=== PATIENT | male | born 1975 | race African-American/Black ===

== ENCOUNTER 2019-04-16 16:29 | Inpatient (IN) ==
[2019-04-16 16:52] LABS: BLOOD TYPE ARTERIAL; SAMPLE BLOOD
[2019-04-16 16:53] LABS: ALLEN TEST YES; BE 2.3 mmoll (-3.0-3.0); HCO3-(ACT) 26.6 mmoll (20.0-26.0); METHB 0.6 % (0.0-1.5); O2(CT) 17.1 mL/dL (15.0-23.0); O2HB 91.9 % (95.0-99.0); PCO2(98.6) 43 mmHg (35-45); PO2(98.6) 62 mmHg (60-100); SAO2 93.4 % (95.0-100.0); THB 13.2 g/dL (11.5-17.4); pH(98.6) 7.41 (7.35-7.45)
[2019-04-16 17:00] LABS: MODALITY ROOM AIR
--- NOTE | 2019-04-16 17:06 | Diag Imaging Result Doc PS360 ---
EXAM: CHEST-PORTABLE HISTORY: chf, pna TECHNIQUE: Portable chest single view COMPARISON: 02/18/2015 FINDINGS: The lungs are well expanded. The heart is not enlarged. The vessels are not distended. There are no infiltrates. No effusion identified. IMPRESSION: No pneumonia or congestive failure. Electronically signed by Jameel Gavin 04/16/2019 5:04 PM
[2019-04-16 17:34] LABS: BASO# 0.06 X1000 (0.0-0.2); BASO% 0.9 % (0.0-0.8); EOS# 0.26 X1000 (0.0-0.7); EOS% 3.7 % (0.0-10.0); HEMATOCRIT 37.5 % (42.0-52.0); LYMPH# 1.87 X1000 (1.2-3.4); LYMPH% 26.8 % (20.5-51.1); MCH 27.2 PG (27-31); MCHC 34.7 g/dL (33-37); MCV 78.5 FL (81-99); MONO# 0.99 X1000 (0.11-0.59); MONO% 14.2 % (1.7-9.3); NEUT% 54.4 % (42.2-75.2); PLT 255 X1000 (130-400); RBC 4.78 XMIL (4.7-6.1); RDW 12.9 % (11.5-14.5); WBC 6.98 X1000 (4.8-10.8)
[2019-04-16 17:39] LABS: INR 0.83; PROTIME 12.1 Seconds (11.0-16.0); PTT 23.8 Seconds (22.3-41.8)
[2019-04-16] MEDS ORDERED: ATIVAN IV ONE (17:46)
[2019-04-16 18:06] LABS: ALBUMIN 3.6 g/dL (3.5-5.0); CALCIUM 9.2 mg/dL (8.8-10.2); CREATININE 1.8 mg/dL (0.7-1.2); MAGNESIUM 2.2 mg/dL (1.5-2.7); POTASSIUM 4.4 mmol/L (3.5-5.1); TOTAL BILIRUBIN 0.24 mg/dL (0.20-1.00); TOTAL PROTEIN 7.1 g/dL (6.3-8.3)
[2019-04-16] MEDS ORDERED: HUMULIN R IV ONE ×2 (18:08→18:10)
[2019-04-16] MEDS ORDERED: NS 1,000 ML IV ONE (18:09)
[2019-04-16 19:18] LABS: UR AMPHETAMINES QUAL NONE DETECTED (NONE DETECT); UR BARBITUATES QUAL NONE DETECTED (NONE DETECT); UR BENZODIAZEPIN QUAL NONE DETECTED (NONE DETECT); UR CANNABINOIDS QUAL NONE DETECTED (NONE DETECT); UR COCAINE QUAL NONE DETECTED (NONE DETECT); UR METHADONE QUAL NONE DETECTED (NONE DETECT); UR OPIATES QUAL NONE DETECTED (NONE DETECT); UR OXYCODONE QUAL NONE DETECTED (NONE DETECT); UR PCP QUAL NONE DETECTED (NONE DETECT)
--- NOTE | 2019-04-16 19:23 | Diag Imaging Result Doc PS360 ---
EXAM: CT HEAD W/O CONTRAST HISTORY: seizure TECHNIQUE: Emergency CT of the head without contrast COMPARISON: None. FINDINGS: No parenchymal hemorrhage. No epidural or subdural hematoma. No subarachnoid hemorrhage. There are chronic microvascular ischemic changes. No mass identified on this noncontrasted exam. No hydrocephalus. Bilateral maxillary mucosal thickening. False right eye. Hyperdense material within the left eye. IMPRESSION: 1.No hemorrhage. 2.Chronic microvascular ischemic changes This exam was performed using automated exposure control, adjustment of mA or kV according to patient size, and/or use of iterative reconstruction technique. Electronically signed by Jameel Gavin 04/16/2019 7:20 PM
[2019-04-16] MEDS ORDERED: KEPPRA 500 MG in NS 100 ML IV ONE (20:38)
--- NOTE | 2019-04-16 20:39 | PROVIDER DOCUMENTATION ---
This chart was entered by Linda Bustillo Scribe, acting as scribe for Ruth Diego MD. HPI-Neurological Disorder - General Stated Complaint: SEIZURES Time Seen by Provider: 04/16/19 16:37 Source: patient Allergies/Adverse Reactions: Patient Allergies Allergy/AdvReac Type Severity Reaction Status Date / Time acetaminophen [From Lortab] Allergy NAUSEA Verified 10/06/15 14:12 hydrocodone bitartrate * Allergy NAUSEA Verified 10/06/15 14:12 [From Lortab] Home Medications: Home Medication List Medication Instructions Recorded Confirmed Last Taken Type Brimonidine/Timolol Ophth Soln 1 drop BOTH EYES BID 02/18/15 10/06/15 02/18/15 06:00 History [Combigan Ophth Soln] Brinzolamide 1% Ophth Susp [Azopt 1 drop BOTH EYES BID 02/18/15 10/06/15 02/18/15 06:00 History 1% Ophth Susp] Nifedipine E.r. [Procardia ER] 60 mg PO DAILY 02/18/15 10/06/15 02/17/15 08:30 History Amlodipine Besylate [Norvasc] 10 mg DAILY 09/30/15 10/06/15 Unknown History Insulin Detemir [Levemir Flextouch] 30 units DAILY 09/30/15 10/06/15 Unknown History Insulin Regular, Human [Novolin R] 20 units SQ DIRECTED PRN PRN 09/30/15 10/06/15 Unknown History Labetalol [Trandate] 200 mg BID 09/30/15 10/06/15 Unknown History Lisinopril 40 mg PO DAILY 09/30/15 10/06/15 Unknown History Omeprazole [Prilosec] 40 mg DAILY 09/30/15 10/06/15 Unknown History Hydralazine [Apresoline] 25 mg PO BID 10/06/15 10/06/15 Unknown History - History of Present Illness-Neuro Nature of Presenting Problem: 43 y/o male presents to ED with 2 seizures onset just prior to arrival. Pt has no hx seizures. Both grand mal seizures lasted less than 5 min and were witnessed by family. Pt is post ictal and unable to speak at this time. EMS rep orts he was hypertensive and FSBS in 400s upon their arrival. Pt is alert and communicating by nodding his head. Severity: reports: moderate Onset/Duration: reports: just prior to arrival Timing: reports: gone now Context: reports: seizure activity Character of Altered Mental Status: reports: N/A Any recent trauma/injury?: reports: none New weakness or altered sensation location:: reports: none Cognitive Baseline: alert, oriented x3 Gait Baseline: walks without assistance Associated Symptoms: reports: seizures Similar Symptoms Previously?: No Recently seen or treated by another doctor?: No - Seizure First time to have a seizure?: Yes Witnessed seizure?: Yes How many seizure episodes?: 2 Duration of episode? (mins): 1 (less than 1 minute) Episode Frequency: no prior episodes Status Epilepticus: No Preceding symptoms/context:: none Character of Seizure: reports: lost consciousness, generalized shaking all over Post-ictal Symptoms: reports: speech difficulty Seizure related injury: none Review of Systems - Adult - REVIEW OF SYSTEMS - ADULT Constitutional: denies: chills, fever Eyes: reports: no symptoms reported Ears, Nose, Mouth & Throat: reports: no symptoms reported Cardiovascular: denies: chest pain, palpitations Respiratory: denies: cough, shortness of breath Gastrointestinal: denies: abdominal pain, diarrhea, nausea, vomiting Genitourinary: reports: no symptoms reported Musculoskeletal: denies: back pain, joint pain Integumentary: reports: no symptoms reported Neurological: reports: seizure. denies: dizziness/vertigo Psychiatric: reports: no symptoms reported Endocrine: reports: no symptoms reported Hematologic/Lymphatic: reports: no symptoms reported Allergic/Immunologic: reports: no symptoms reported All Other Systems: Reviewed and Negative Past History - Adult - PAST MEDICAL HISTORY-ADULT Review of Records: reports: Old Records Reviewed, Nursing Assessment Review, Medications Reviewed Major Childhood Illnesses: reports: denies history Cardiovascular: reports: CHF, HTN Respiratory: reports: COPD Gastrointestinal: reports: ulcer Musculoskeletal: reports: arthritis Endocrine/Immune: reports: anemia, Diabetes Diabetes Type: Type 2 Other Conditions: reports: blindness - PRIOR SURGERIES/PROCEDURES Surgical/Procedure History: reports: other (eye Sx) - IMMUNIZATION STATUS Childhood Immunizations: NUTD Flu Vaccine: NUTD - FAMILY HISTORY Family History: reviewed, not pertinent - SOCIAL HISTORY Smoking: non-smoker Substance Use: marijuana Alcohol Use Frequency: never Living Situation: family Physical Exam- Neurological - Physical Exam-Neuro Initial Vital Signs Reviewed: Yes General Appearance: appears well, alert, no apparent distress, other (communicating via nodding his head; unable to speak) Eye Exam: bilateral eye: other (blind) HENMT: normocephalic/atraumatic, moist mucous membranes, normal ENT inspection Head Injury: no evidence of injury Neck: non-tender, full range of motion Respiratory: chest non-tender, lungs clear, normal breath sounds Cardiovascular: normal peripheral pulses, regular rate, rhythm Abdominal Exam: normal bowel sounds, non tender, soft Extremity: normal range of motion, non-tender, normal gait, swelling (2+ pitting edema of bilateral lower extremities) roller structural mill Exam: normal hearing, normal speech, PERRL Coordination/Gait: normal finger to nose, normal gait Motor/Sensory: no motor deficit, no sensory deficit, no pronator drift Neurologic: roller structural mill II-XII nml as tested, grossly normal, no motor/sensory deficits Integumentary: normal color, warm/dry Psych/Mental Status: normal mood/affect, normal thought content, normal thought process Progress - PLAN OF CARE/RESULTS Progress/Plan/Lab Results: Vital Signs - 8 hr 04/16/19 16:42 04/16/19 16:53 04/16/19 16:54 Temperature 98.2 F Pulse Rate 94 H Respiratory Rate 16 Blood Pressure 177/108 177/108 O2 Sat by Pulse Oximetry 96 97 96 04/16/19 17:00 04/16/19 17:02 04/16/19 17:10 Temperature Pulse Rate 92 H 95 H 95 H Respiratory Rate 13 15 Blood Pressure 181/109 O2 Sat by Pulse Oximetry 96 96 95 04/16/19 17:20 04/16/19 17:30 04/16/19 17:33 Temperature Pulse Rate 96 H 93 H 93 H Respiratory Rate 6 L 5 L 11 L Blood Pressure 193/105 O2 Sat by Pulse Oximetry 97 96 95 04/16/19 17:40 04/16/19 17:50 04/16/19 18:00 Temperature Pulse Rate 93 H 102 H 97 H Respiratory Rate 3 L 20 17 Blood Pressure O2 Sat by Pulse Oximetry 96 98 99 04/16/19 18:03 04/16/19 18:10 04/16/19 18:20 Temperature Pulse Rate 97 H 98 H 100 H Respiratory Rate 16 21 19 Blood Pressure 167/106 O2 Sat by Pulse Oximetry 99 100 99 04/16/19 18:30 04/16/19 18:33 04/16/19 19:09 Temperature Pulse Rate 96 H 96 H 94 H Respiratory Rate 14 12 12 Blood Pressure 170/106 O2 Sat by Pulse Oximetry 99 99 97 04/16/19 19:10 Temperature Pulse Rate 92 H Respiratory Rate 13 Blood Pressure O2 Sat by Pulse Oximetry 99 Laboratory Results - last 24 hr 04/16/19 04/16/19 04/16/19 16:35 16:50 17:12 WBC RBC Hgb Hct MCV MCH MCHC RDW Std Deviation Plt Count MPV Immature Gran % (Auto) Neut % (Auto) Lymph % (Auto) [place] % (Auto) Eos % (Auto) Baso % (Auto) Immature Gran # (Auto) Neut # (Auto) Lymph # (Auto) [place] # (Auto) Eos # (Auto) Baso # (Auto) PT INR PTT (Actin FS) Specimen Type ARTERIAL Sample Site R RADIAL pH 7.41 pCO2 43 pO2 62 HCO3 26.6 H Base Excess 2.3 Oxyhemoglobin 91.9 L ABG O2 Sat (Calculated) 17.1 ABG O2 Saturation 93.4 L ABG Carboxyhemoglobin 1.00 ABG Methemoglobin 0.6 Yogesh Test YES A-a O2 Difference 34.0 Total Hemoglobin 13.2 Lactate 1.60 Blood Gas Modality ROOM AIR FiO2 % 21.0 Sodium Potassium Chloride Carbon Dioxide Anion Gap BUN Creatinine Estimated GFR/1.73 m2 BUN/Creatinine Ratio Glucose POC Glucose 500 H D Calculated Osmolality Calcium Phosphorus Magnesium Total Bilirubin AST ALT Alkaline Phosphatase Creatine Kinase Troponin T Total Protein Albumin Globulin Albumin/Globulin Ratio Plasma Lactate Urine Opiates Screen Ur Oxycodone Screen Ur Methadone, Qual Ur Barbiturates Screen Ur Phencyclidine Scrn Ur Amphetamines Screen U Benzodiazepines Scrn Urine Cocaine Screen U Cannabinoids Screen Plasma/Serum Ethyl Alc 04/16/19 04/16/19 04/16/19 17:12 17:12 17:12 WBC 6.98 RBC 4.78 Hgb 13.0 L Hct 37.5 L MCV 78.5 L MCH 27.2 MCHC 34.7 RDW Std Deviation 12.9 Plt Count 255 MPV 11.0 H Immature Gran % (Auto) 0.0 Neut % (Auto) 54.4 Lymph % (Auto) 26.8 [place] % (Auto) 14.2 H Eos % (Auto) 3.7 Baso % (Auto) 0.9 H Immature Gran # (Auto) 0.00 Neut # (Auto) 3.80 Lymph # (Auto) 1.87 [place] # (Auto) 0.99 H Eos # (Auto) 0.26 Baso # (Auto) 0.06 PT INR PTT (Actin FS) Specimen Type Sample Site pH pCO2 pO2 HCO3 Base Excess Oxyhemoglobin ABG O2 Sat (Calculated) ABG O2 Saturation ABG Carboxyhemoglobin ABG Methemoglobin Yogesh Test A-a O2 Difference Total Hemoglobin Lactate Blood Gas Modality FiO2 % Sodium 130 L Potassium 4.4 Chloride 90 L Carbon Dioxide 25 Anion Gap 15 BUN 28 H Creatinine 1.8 H Estimated GFR/1.73 m2 50 BUN/Creatinine Ratio 16 Glucose 568 H* POC Glucose Calculated Osmolality 292 Calcium 9.2 Phosphorus Magnesium 2.2 Total Bilirubin 0.24 AST 7 L ALT 6 L Alkaline Phosphatase 63 Creatine Kinase 73 Troponin T Total Protein 7.1 Albumin 3.6 Globulin 3.5 Albumin/Globulin Ratio 1.0 Plasma Lactate 1.3 Urine Opiates Screen Ur Oxycodone Screen Ur Methadone, Qual Ur Barbiturates Screen Ur Phencyclidine Scrn Ur Amphetamines Screen U Benzodiazepines Scrn Urine Cocaine Screen U Cannabinoids Screen Plasma/Serum Ethyl Alc 04/16/19 04/16/19 04/16/19 17:12 17:12 17:12 WBC RBC Hgb Hct MCV MCH MCHC RDW Std Deviation Plt Count MPV Immature Gran % (Auto) Neut % (Auto) Lymph % (Auto) [place] % (Auto) Eos % (Auto) Baso % (Auto) Immature Gran # (Auto) Neut # (Auto) Lymph # (Auto) [place] # (Auto) Eos # (Auto) Baso # (Auto) PT 12.1 INR 0.83 PTT (Actin FS) 23.8 Specimen Type Sample Site pH pCO2 pO2 HCO3 Base Excess Oxyhemoglobin ABG O2 Sat (Calculated) ABG O2 Saturation ABG Carboxyhemoglobin ABG Methemoglobin Yogesh Test A-a O2 Difference Total Hemoglobin Lactate Blood Gas Modality FiO2 % Sodium Potassium Chloride Carbon Dioxide Anion Gap BUN Creatinine Estimated GFR/1.73 m2 BUN/Creatinine Ratio Glucose POC Glucose Calculated Osmolality Calcium Phosphorus 4.0 Magnesium Total Bilirubin AST ALT Alkaline Phosphatase Creatine Kinase Troponin T 0.027 Total Protein Albumin Globulin Albumin/Globulin Ratio Plasma Lactate Urine Opiates Screen Ur Oxycodone Screen Ur Methadone, Qual Ur Barbiturates Screen Ur Phencyclidine Scrn Ur Amphetamines Screen U Benzodiazepines Scrn Urine Cocaine Screen U Cannabinoids Screen Plasma/Serum Ethyl Alc 04/16/19 18:45 WBC RBC Hgb Hct MCV MCH MCHC RDW Std Deviation Plt Count MPV Immature Gran % (Auto) Neut % (Auto) Lymph % (Auto) [place] % (Auto) Eos % (Auto) Baso % (Auto) Immature Gran # (Auto) Neut # (Auto) Lymph # (Auto) [place] # (Auto) Eos # (Auto) Baso # (Auto) PT INR PTT (Actin FS) Specimen Type Sample Site pH pCO2 pO2 HCO3 Base Excess Oxyhemoglobin ABG O2 Sat (Calculated) ABG O2 Saturation ABG Carboxyhemoglobin ABG Methemoglobin Yogesh Test A-a O2 Difference Total Hemoglobin Lactate Blood Gas Modality FiO2 % Sodium Potassium Chloride Carbon Dioxide Anion Gap BUN Creatinine Estimated GFR/1.73 m2 BUN/Creatinine Ratio Glucose POC Glucose Calculated Osmolality Calcium Phosphorus Magnesium Total Bilirubin AST ALT Alkaline Phosphatase Creatine Kinase Troponin T Total Protein Albumin Globulin Albumin/Globulin Ratio Plasma Lactate Urine Opiates Screen NONE DETECTED Ur Oxycodone Screen NONE DETECTED Ur Methadone, Qual NONE DETECTED Ur Barbiturates Screen NONE DETECTED Ur Phencyclidine Scrn NONE DETECTED Ur Amphetamines Screen NONE DETECTED U Benzodiazepines Scrn NONE DETECTED Urine Cocaine Screen NONE DETECTED U Cannabinoids Screen NONE DETECTED Plasma/Serum Ethyl Alc Orders Category Date Time Status Cardiac Monitoring DIRECTED Care 04/16/19 16:35 Active Finger Stick Blood Sugar (ED) DIRECTED Care 04/16/19 16:34 Active Notify MD if DIRECTED Care 04/16/19 16:34 Active Oxygen Therapy- ED Nursing DIRECTED Care 04/16/19 16:35 Active Saline Loc NOW Care 04/16/19 16:34 Active CHEST-PORTABLE [RAD] Stat Exams 04/16/19 16:[address] HEAD W/O CONTRAST [CT] Stat Exams 04/16/19 16:34 Completed ABG [RESP] Routine Lab 04/16/19 16:35 Completed ALCOHOL BLOOD Stat Lab 04/16/19 17:12 Completed CBC WITH ELECTRONIC DIFF [HEME] Stat Lab 04/16/19 17:12 Completed CK PROFILE [SP CHEM] Stat Lab 04/16/19 17:12 Completed COMPREHENSIVE METABOLIC PANEL [CHEM] Stat Lab 04/16/19 17:12 Completed LACTATE, PLASMA [CHEM] Stat Lab 04/16/19 17:12 Completed MAGNESIUM [CHEM] Stat Lab 04/16/19 17:12 Completed PHOSPHORUS [CHEM] Stat Lab 04/16/19 17:12 Completed PROTIME WITH INR [COAG] Stat Lab 04/16/19 17:12 Completed PTT [COAG] Stat Lab 04/16/19 17:12 Completed TROPONIN T Stat Lab 04/16/19 17:12 Completed URINE DRUG SCREEN Stat Lab 04/16/19 18:45 Completed 0.9% Sodium Chloride Inj [Ns] 1,000 ml Med 04/16/19 18:09 Discontinued IV 999 mls/hr Insulin Human Regular [Humulin R] Med 04/16/19 18:08 Discontinued 10 unit IV NOW ONE Insulin Human Regular [Humulin R] Med 04/16/19 18:10 Discontinued See Protocol IV NOW ONE Levetiracetam [Keppra] 500 mg Med 04/16/19 20:38 Ordered 0.9% Sodium Chloride Inj [Ns] 100 ml IV NOW Lorazepam [Ativan] Med 04/16/19 17:46 Discontinued 1 mg IV NOW ONE Altered Mental Status Stat Oth 04/16/19 16:35 Ordered Seizure, New Onset Stat Oth 04/16/19 16:34 Ordered EKG [EKG] NOW Ther 04/16/19 16:35 Ordered [facility] [address] [place] [address], [address], [place] [address] Department of Imaging Patient: TAMY TOVAR ADM Date: 04/16/19 MR#: [id number] : 1975 ADM Status: PRE ER Age/Sex: 43/M Room/Bed: Loc: ED Ordering Physician: Ruth Diego MD Family Physician: Mic Barrow Jr, MD Reason for Procedure: chf, pna Signed EXAM: CHEST-PORTABLE HISTORY: chf, pna TECHNIQUE: Portable chest single view COMPARISON: 02/18/2015 FINDINGS: The lungs are well expanded. The heart is not enlarged. The vessels are not distended. There are no infiltrates. No effusion identified. IMPRESSION: No pneumonia or congestive failure. Electronically signed by Jameel Gavin 04/16/2019 5:04 PM 04/16/19 170 Interpreting Physician: Jameel Gavin MD Dictated Date/Time: 04/16/191703 cc: Ruth Diego MD; Mic Barrow Jr, MD [facility] [address] [place] [address], [address], [place] [address] Department of Imaging Patient: TAMY TOVAR ADM Date: 04/16/19 MR#: [id number] : 1975 ADM Status: REG ER Age/Sex: 43/M Room/Bed: Loc: ED Ordering Physician: Ruth Diego MD Family Physician: Rosalva Hernadez Reason for Procedure: seizure ___ Signed EXAM: CT HEAD W/O CONTRAST HISTORY: seizure TECHNIQUE: Emergency CT of the head without contrast COMPARISON: None. FINDINGS: No parenchymal hemorrhage. No epidural or subdural hematoma. No subarachnoid hemorrhage. There are chronic microvascular ischemic changes. No mass identified on this noncontrasted exam. No hydrocephalus. Bilateral maxillary mucosal thickening. False right eye. Hyperdense material within the left eye. IMPRESSION: 1.No hemorrhage. 2.Chronic microvascular ischemic changes This exam was performed using automated exposure control, adjustment of mA or kV according to patient size, and/or use of iterative reconstruction technique. Electronically signed by Jameel Gavin 04/16/2019 7:20 PM 04/16/19 192 Interpreting Physician: Jameel Gavin MD Dictated Date/Time: 04/16/191918 cc: Ruth Diego MD; Rosalva Hernadez Result Diagrams: 04/16/19 17:12 04/16/19 17:12 - REASSESSMENT Reassessment #1 Time Reassessed: 18:43 (was able to talk to nurse. generalized weak. had another epidsode at bedside, ativan given.) Status: improving - EKG 1 Time of EKG reading by physician:: 16:56 EKG Read and Signed by:: Eben Callahan EKG Interpretation (*Must complete 3 of following elements*): Abnormal Rate: 92 Rhythm: NSR [place]: normal QRS: other (nonspecific intraventricular conduction delay) IA Interval: prolonged ST Wave: normal - XRAY 1 XRAY Study: Chest Impression: Normal (FINDINGS: The lungs are well expanded. The heart is not enlarged. The vessels are not distended. There are no infiltrates. No effusion identified. IMPRESSION: No pneumonia or congestive failure. Electronically signed by Jameel Gavin 04/16/2019 5:04 PM) - CT/MRI 1 CT Study: Head Impression: See EMR Report - CONSULTS/PCP/HOSPITALIST Notification #1 *Consult/PCP/Hospitalist*: Dr. Jimenez Time Discussed: 20:38 (new onset seizure. hyperglycemia) Consult Disposition: Admit Departure - Departure Date of Disposition Decision: 04/16/19 Time of Disposition Decision: 20:08 DIAGNOSIS: Seizure, Hyperglycemia due to type 2 diabetes mellitus, Electrolyte abnormality Disposition: ADMITTED INPATIENT 09 Certified Medical Emergency: Emergent Condition: Stable Referrals and Follow-Ups: Mic Barrow Jr, MD [NON-STAFF PROVIDER] - - Critical Care Note This patient required my direct & personal management of CC.: No Attestation - Physician/ ALEX Attestation Patient care was provided by Advanced Practice Provider:: No The physician spent face to face time with patient:: Yes Advanced Practice Provider documentation review:: Supervising physician onsite and consulted in the evaluation and care of this patient. The physician did have a face to face encounter with the patient. - NIH Stroke Scale NIH Type: Initial Evaluation Level of Consciousness: 0-Alert LOC Questions (ask month and age): 0-Answers Both Correctly Best Gaze (horizontal eye movement): 0-Normal Facial Palsy (show teeth or raise eyebrows & close eyes tght: 0-Symmetrical Movement Motor Function-left arm: 0-Normal Motor Function-right arm: 0-Normal Motor Function-left le-Normal Motor Function-right le-Normal Sensory(pin prick to face,arms,trunk,legs-compare side/side): 0-No Ataxia Dysarthria(Pt read words or say words Ex.Mama,Tip-Top,Thanks: 0-Normal Articulation Extinction and Inattention: 0-Normal Modified [place] Score Criteria: 0-no symptoms This chart was documented by the indicated scribe, (Linda Bustillo, Scribe) and accurately reflects the services I performed and decisions made by me, Ruth Diego MD, as attested by the provider's signature.
[2019-04-16] MEDS ORDERED: ATIVAN IV PRN (21:30)
--- NOTE | 2019-04-16 21:42 | HISTORY AND PHYSICAL ---
PRIMARY CARE PROVIDER: Rosalva Mobley. CHIEF COMPLAINT: Tremor and shaking all over. HISTORY OF PRESENTING ILLNESS: A 43-year-old male who is legally blind with a history of diabetes mellitus type 2, hypertension, CHF and hyperlipidemia who presented to emergency department with a 1-day history of patient shaking all over and mostly in his right lower extremity. This was witnessed by his mother. She states that he became incoherent after that. The patient was brought into the emergency department. Due to his presenting symptoms and suspicion for new onset of seizure, it was thought that he would need admission for further management. At the time of my examination, patient denied any headache, fever, chills, chest pain, shortness of breath, hemoptysis, or weight changes. States that he feels better. PAST MEDICAL HISTORY: Includes diabetes mellitus type 2, hypertension, CHF, and hyperlipidemia. PAST SURGICAL HISTORY: Eye surgery. ALLERGIES: Codeine. CURRENT MEDICATIONS: Include Norvasc 10 mg p.o. daily, Combigan ophthalmic solution 1 drop in both eyes, hydralazine 25 mg p.o. b.i.d., Levemir 30 units subcutaneously daily, Novolin R 20 units subcutaneously as directed, labetalol 200 mg p.o. b.i.d., lisinopril 40 mg p.o. daily, Procardia ER 60 mg p.o. daily, omeprazole 40 mg p.o. daily. SOCIAL HISTORY: No history of smoking or alcohol use. Admits to occasional marijuana use. FAMILY HISTORY: No history of coronary disease. REVIEW OF SYSTEMS: Fourteen-point review of systems is as in HPI. Other systems negative. PHYSICAL EXAMINATION: GENERAL: Cooperative, friendly male. He is resting more comfortably now. VITAL SIGNS: Temperature 98.2 degrees, pulse 94, respirations 16, blood pressure 177/108. HEENT: Atraumatic, normocephalic. NECK: No masses. CHEST: Clear to auscultation. CARDIOVASCULAR: Regular rate and rhythm. ABDOMEN: Soft. Positive bowel sounds. EXTREMITIES: No edema. NEUROLOGIC: He is awake, alert, and oriented x3. : No bladder distention. SKIN: Warm. LABORATORIES AND STUDIES: WBC 6.98, hemoglobin 13.1, hematocrit 37.5, platelets 255,000. Sodium 130, potassium 4.4, chloride 90, CO2 of 25, BUN is 28, creatinine is 1.8, glucose is 568. Troponin 0.027. CT of the head shows no hemorrhage. Chronic microvascular ischemic changes. ASSESSMENT: A 43-year-old male with a history of diabetes mellitus type 2, hypertension, congestive heart failure, and hyperlipidemia who presented to the emergency department with a 1- day history of having generalized tremors and shaking all over. This was witnessed by his mother. He was evaluated in the emergency department. Due to the suspicion of a new onset of seizures, he will require admission for further management. 1. Suspected seizure. 2. Diabetes mellitus type 2 with hyperglycemia. 3. Hypertension. 4. Hyperlipidemia. PLAN: 1. We will admit patient to medical floor with telemetry. 2. Put patient on seizure precautions. 3. We will continue with IV Keppra and Ativan p.r.n. 4. We will consult Neurology. 5. We will monitor blood glucose and put patient on sliding scale insulin regimen. 6. We will monitor blood pressure. Resume antihypertensive agents. 7. Restart other home medications. 8. Put patient on DVT prophylaxis with SCDs. 9. We will continue to follow and reassess and make further recommendation based on patient's clinical course. cc: Rudolph Jimenez MD
[2019-04-16] MEDS: NS 1,000 ML IV SCH (22:46)
[2019-04-17] MEDS: HUMULIN R SUBQ SCH ×7 (01:08→21:05)
[2019-04-17 05:50] LABS: BASO# 0.04 X1000 (0.0-0.2); BASO% 0.7 % (0.0-0.8); EOS# 0.23 X1000 (0.0-0.7); EOS% 3.7 % (0.0-10.0); HEMATOCRIT 38.5 % (42.0-52.0); HEMOGLOBIN 13.2 g/dL (14.0-18.0); LYMPH# 2.04 X1000 (1.2-3.4); LYMPH% 33.2 % (20.5-51.1); MCH 27.3 PG (27-31); MCHC 34.3 g/dL (33-37); MCV 79.5 FL (81-99); MONO# 0.68 X1000 (0.11-0.59); MONO% 11.1 % (1.7-9.3); NEUT# 3.16 X1000 (1.4-6.5); NEUT% 51.3 % (42.2-75.2); PLT 269 X1000 (130-400); RBC 4.84 XMIL (4.7-6.1); RDW 13.2 % (11.5-14.5); WBC 6.15 X1000 (4.8-10.8)
[2019-04-17 06:25] LABS: AGAP 10; BUN 20 mg/dL (8-22); CALCIUM 9.2 mg/dL (8.8-10.2); CHLORIDE 105 mmol/L (98-107); COSMO 297; CREATININE 1.4 mg/dL (0.7-1.2); ESTIMATED GFR > 60; GLUCOSE 264 mg/dL (70-104); POTASSIUM 3.8 mmol/L (3.5-5.1); SODIUM 143 mmol/L (136-145); TCO2 28 mmol/L (25-35)
[2019-04-17] MEDS ORDERED: HUMULIN R SUBQ SCH (07:00)
[2019-04-17] MEDS: NS 1,000 ML IV SCH (10:52)
[2019-04-17] MEDS: KEPPRA 500 MG in NS 100 ML IV SCH ×2 (10:52→21:05)
--- NOTE | 2019-04-17 11:37 | PROGRESS NOTE ---
DATE: 04/17/2019 Mr. Mistry complains his legs are cramping, leg pain. OBJECTIVE: Temperature 98.4 degrees, pulse 87, respirations 20, blood pressure 163/99. Pupils are equal. Lungs are clear in all lung newman. Cardiovascular: Regular rhythm and rate without murmur or S3. Abdomen is soft. Skin is warm and dry. DIAGNOSTIC STUDIES: Sugar when he came in yesterday was 500. Last 2 sugars were 167 and 181. Labs this morning, white count 6150, hematocrit 38, platelet count 269,000. Sodium 143, potassium 3.8, chloride 105, BUN 20, creatinine 1.4 (creatinine has come down from 1.8 yesterday to 1.4), and blood sugars have come down nicely. Urine drug screen was negative for opiates, oxycodone, methadone, barbiturates, phencyclidine, amphetamines, benzodiazepines, cocaine, cannabinoids, and ethanol. Blood gas: PH is 7.41, pCO2 of 43, PO2 of 62, O2 saturation is 93%, FiO2 is 21%. His head CT without contrast: No hemorrhage. Chronic microvascular ischemic areas. Chest x-ray: No pneumonia or congestive heart failure appreciated. HOME MEDICATIONS: He is on vitamin D3, he is on Apresoline 50 mg t.i.d., insulin detemir 50 units q.p.m., I think he has a sliding scale he uses at home Novolin R, Trandate 400 mg t.i.d., lisinopril 400 mg a day, nifedipine ER which is Procardia ER 60 mg b.i.d., Prilosec 40 mg daily, simvastatin 40 mg q.p.m., Desyrel 100 mg at bedtime. So he came in yesterday. He is followed by Rosalva Mobley. He was complaining of tremors and shaking all over. A 43-year-old black male who is legally blind, history of diabetes mellitus, hypertension, congestive heart failure, hyperlipidemia, presented to the emergency room with 1-day history of shaking all over, mostly in his right upper extremity. This was witnessed by his mother. Became incoherent after that. The patient was brought to the emergency department, was suspicious for new onset seizure and so admitted. Sugar was 500 on admission. For past medical history, he has a history of diabetes mellitus, hypertension, congestive heart failure, hyperlipidemia, so was admitted with suspected seizure. He has not had any more events here. He is not shaking at the present time, requesting food so I will put him on a diabetic diet. Review of his lab: No other real significant abnormalities. His creatinine is down to 1.4 and it was 1.8. Seemed to be a bit dry on presentation. cc: Yogesh Ledesma MD
[2019-04-17] MEDS: APRESOLINE PO SCH (16:51)
[2019-04-17] MEDS: TRANDATE PO SCH (16:51)
[2019-04-17] MEDS ORDERED: ROBAXIN PO PRN (18:42)
[2019-04-17] MEDS ORDERED: INSULIN PEN NEEDLES ONE (20:29)
[2019-04-17] MEDS: ZOCOR PO SCH (21:03)
[2019-04-17] MEDS: DESYREL PO SCH (21:03)
[2019-04-17] MEDS: LEVEMIR SUBQ SCH (21:04)
[2019-04-18] MEDS: APRESOLINE PO SCH ×3 (06:48→16:53)
[2019-04-18] MEDS: PRILOSEC PO SCH (06:49)
[2019-04-18] MEDS: HUMULIN R SUBQ SCH ×4 (07:15→20:49)
[2019-04-18] MEDS: PRINIVIL PO SCH ×2 (07:16→09:22)
[2019-04-18 07:35] LABS: ALB/GLOB RATIO 1.1; ALBUMIN 3.3 g/dL (3.5-5.0); CALCIUM 7.9 mg/dL (8.8-10.2); CREATININE 1.6 mg/dL (0.7-1.2); MAGNESIUM 1.9 mg/dL (1.5-2.7); POTASSIUM 3.9 mmol/L (3.5-5.1); TOTAL BILIRUBIN 0.21 mg/dL (0.20-1.00); TOTAL PROTEIN 6.3 g/dL (6.3-8.3)
--- NOTE | 2019-04-18 07:43 | EKG Report ---
Test Performed on : 04/16/2019 4:56:41 PM Test Reason : seizure Blood Pressure : / mmHG Vent. Rate : 092 BPM Atrial Rate : 092 BPM P-R Int : 180 ms QRS Dur : 118 ms QT Int : 398 ms P-R-T Axes : 043 -28 018 degrees QTc Int : 492 ms Normal sinus rhythm. Nonspecific intraventricular conduction delay Prolonged QT Abnormal ECG When compared with ECG of 18-FEB-2015 08:34, No significant change was found Unconfirmed Result
[2019-04-18 08:01] LABS: FREE T4 1.2 ng/dL (0.93-1.70); TSH 1.03 uIUmL (0.27-4.20)
[2019-04-18] MEDS: TRANDATE PO SCH ×3 (09:24→16:53)
[2019-04-18] MEDS: KEPPRA 500 MG in NS 100 ML IV SCH ×2 (09:24→21:00)
--- NOTE | 2019-04-18 13:00 | CONSULTATION ---
DATE OF CONSULTATION: 04/18/2019 HISTORY OF PRESENT ILLNESS: Mr. Mistry is 43 years old and there is question of recent seizure. History from the patient is that he recalls sitting on the bed a few days ago feeling at his baseline. Suddenly, he had involuntary jerking in the right leg and he could not make that stop. His report is that the jerking remain confined to the right leg. He specifically denies right arm jerking, left leg jerking, other jerking movement. During this time, he could hear people talking but could not understand what they were saying. He remembers trying to talk and believes all he could say was "mama, mama". He believes the episode resolved in about 3 minutes. Afterwards, he was exhausted. Ambulance was summoned and he was brought to the hospital, evaluated and admitted. He has not had any more episodes. He reports no prior similar episode. He reports no history of previous seizure. He is certain that he did not lose consciousness or have memory gap with the recent episode. Workup here includes lab showing initial blood sugar over 500, now controlled in the 110s. Sodium was 130. There was anemia. Noncontrast CT of the head was unremarkable. He has been afebrile. Systolic blood pressures have ranged from 140s to 210. He was started on levetiracetam 500 mg IV q.12 hours and he has tolerated that. He has not had any further episodes. PAST HISTORY: Remarkable for diabetes mellitus, dyslipidemia, hypertension, heart failure. He has chronic blindness. PHYSICAL EXAMINATION: Neurologic: On exam, he is awake, alert, attentive, oriented, appropriate. Speech is not dysarthric. Language function is intact on careful bedside testing. Recent and remote memory are good. Head and neck are unremarkable. He cannot see. Facial motility is symmetric. Tongue is midline. Chewing and swallowing are good. Gag is intact. Shoulder shrug is equal. Strength is normal in the arms and legs. He did well on [id number] and heel-to- vigil testing bilaterally. He has a stocking pattern of sensory loss bilaterally. He has good pinprick appreciation and good proprioception in the hands. I did not test his gait. Reflexes are absent at the ankles, trace at the knees, 1+ symmetrically at the wrist. Plantar response is silent bilaterally. IMPRESSION: 1. History of right leg jerking consistent with clonic activity, raising question focal motor seizure. There was associated difficulty with communication and likely dysphasia. He seems completely intact now. Reason for seizure is not certain. Negative imaging is reassuring. In light of his young age, I think it would be reasonable to be aggressive with workup. I think brain MRI and EEG would make things more complete. Would prefer MRI with contrast, so will wait to see if renal function continues to improve before ordering MRI. 2. He has clinical evidence of peripheral neuropathy, presumed diabetic neuropathy. I do not think that needs workup now. 3. He presented with extreme hyperglycemia. Typically, metabolic encephalopathies would be associated with generalized seizure but we do occasionally see focal seizure with extreme blood sugar changes. Thanks for asking Neurology to see Mr. Mistry. I would continue levetiracetam short-term until we have workup completed. cc: MD TRENT Zamudio III
--- NOTE | 2019-04-18 17:12 | PROGRESS NOTE ---
DATE: 04/18/2019 SUBJECTIVE: Mr. Mistry is feeling better. He still has got cramping in his legs, not as bad as yesterday. No further seizure activity. He is eating. He feels stable on his feet but he does want to do some walking around. OBJECTIVE: Vital Signs: Temperature 97.9 degrees, pulse 90, respirations 18, blood pressure 202/116. Blood pressures have been running a little high 163 to 202 over 99 to 116. Lungs: Clear in all lung newman. Cardiovascular: Regular rhythm and rate without murmur or S3. Abdomen: Soft. Skin: Warm and dry. LABORATORY STUDIES: Urine output was 6700 mL. Blood sugars 485, 337, 380. ASSESSMENT AND PLAN: 1. The patient had a history of right leg jerking consistent with clonic activity, raising question of focal motor seizure. This was associated with difficulty with communication, likely dysphagia. Reason for seizures not certain, so an MRI and EEG I think is the plan. He is on Keppra right now. 2. Clinical evidence of peripheral neuropathy, presumed diabetic neuropathy. Blood sugars have been high and wonder if they have been poorly controlled at home. 3. Extreme hyperglycemia when he came in and typically metabolic encephalopathies would be associated with generalized seizure, but sometimes can see a focal seizure. So we are going to try walk him around some with physical therapy. REVIEW OF HIS ORDERS: He is on levetiracetam 500 mg twice a day. I am going to adjust his medicine. Blood pressure is still running a little bit high. I think I will add Norvasc to his regimen 10 mg daily. He is on muscle relaxers. Legs still have a lot of cramping and irritation. Hematocrit 38, hemoglobin 13 with an MCV of 79. Blood sugars have been in the 300s. He is on trazodone 100 mg at bedtime, vitamin D 50,000 units every week p.o., Apresoline 50 mg t.i.d., insulin detemir 25 units q.p.m., Trandate 400 mg t.i.d., levetiracetam 500 mg IV q.12 h., Prinivil 40 mg a day, Ativan 0.5 mg q.4 h. p.r.n., Robaxin 750 mg p.o. t.i.d., Prilosec 40 mg daily, and Zocor 40 mg a day. cc: Yogesh Ledesma MD
[2019-04-18] MEDS: LEVEMIR SUBQ SCH (20:48)
[2019-04-18] MEDS: ZOCOR PO SCH (20:48)
[2019-04-18] MEDS: DESYREL PO SCH (20:48)
[2019-04-19] MEDS ORDERED: LABETALOL IV ONE (04:30)
[2019-04-19] MEDS: PRILOSEC PO SCH (06:49)
[2019-04-19] MEDS: HUMULIN R SUBQ SCH ×3 (06:50→16:59)
[2019-04-19] MEDS: APRESOLINE PO SCH ×3 (06:50→16:59)
[2019-04-19] MEDS ORDERED: MOTRIN PO PRN (09:01)
[2019-04-19] MEDS: TRANDATE PO SCH ×2 (09:17→13:58)
[2019-04-19] MEDS: KEPPRA 500 MG in NS 100 ML IV SCH (09:20)
[2019-04-19] MEDS: PRINIVIL PO SCH (09:20)
--- NOTE | 2019-04-19 10:26 | Diag Imaging Result Doc PS360 ---
EXAM: MRI BRAIN W/WO CONTRAST 04/19/2019 HISTORY: new onset seizure TECHNIQUE: T1 sagittal, axial and post gadolinium-enhanced axial with coronal reformation, T2, FLAIR, DWI axial and coronal gradient echo COMMENT: There is extensive subcortical and periventricular white matter hyperintensity on T2. There is no evidence of bleed or abnormal extra-axial fluid collection. There is no evidence of restricted diffusion. There is no evidence of abnormal gadolinium enhancement. Some mucosal thickening is present in both maxillary sinuses presumably due to previous chronic sinusitis. IMPRESSION: Chronic ischemic microvascular changes. No evidence of acute intracranial disease. Electronically signed by Joni Romero 04/19/2019 10:24 AM
--- NOTE | 2019-04-19 12:33 | PROGRESS NOTE ---
DATE: 04/19/2019 SUBJECTIVE: Mr. Mistry is sitting up. He does complain of a little bit of headache. He said he does get headaches at home so I will let him have a little bit of ibuprofen and see if that will help. He has not had any further seizure-type activity. His legs are still cramping. OBJECTIVE: Temperature 98.2 degrees, pulse 73, respirations 18, blood pressure 174/99. Pupils are equal. No distended neck veins. Lungs are clear in all lung newman. Cardiovascular Examination: Regular rhythm and rate without murmur or S3. Abdomen is soft. Skin is warm and dry. Blood sugar 380, 235, 194 so they seem to be coming down. His brain MRI showed chronic ischemic microvascular changes but no evidence of acute intracranial process. ASSESSMENT AND PLAN: 1. History of right leg jerking. This sounded consistent with clonic activity, raising question for focal motor seizure. He is on Keppra right now. We will switch him to oral Keppra. MRI unremarkable. He has an electroencephalogram I believe scheduled. 2. Evidence of peripheral neuropathy, presumed diabetic neuropathy. Blood sugars were high. It seemed to be coming down with sliding scale. 3. Extreme hyperglycemia when he presented. This is improving. Right now, he is on insulin detemir 25 units subcutaneous every evening. 4. Blood pressure appears to be well controlled but in the hospital, taken back in the hospital, he has been running 170s to 190s so he is on labetalol 400 mg three times a day, hydralazine 50 mg three times a day. At home, he was taking these medications plus lisinopril 40 mg a day and Procardia 60 mg twice a day so I will put him back on both of these. cc: Yogesh Ledesma MD
[2019-04-19 14:40] VITALS: BP 157/94
--- NOTE | 2019-04-19 15:23 | PROGRESS NOTE ---
DATE: 04/19/2019 Mr. Mistry has noticed some cramping in both feet, and some numbness and coldness in the feet but he has not had any unilateral symptoms. He has not had any further right limb jerking. EEG was normal. Brain MRI is unremarkable, showing expected age-related changes. He has tolerated levetiracetam and I would continue that at least short term. I will arrange for him to be seen in my office to follow up on the levetiracetam management. Thanks for asking Neurology to see Mr. Mistry. cc: Bernie Rob III, MD
--- NOTE | 2019-04-19 15:29 | EEG REPORT ---
DATE: 04/18/2019 EEG #: [id number]. DATE OF STUDY: 04/18/2019. COMMENT: This is a digitally recorded EEG on a 43-year-old patient with reported recent right leg jerking and question of focal motor seizure. FINDINGS: During waking, low amplitude polymorphic and rhythmic theta are present across the frontal and central regions symmetrically. There was not sustained posterior dominant rhythm identified. EKG artifact and muscle contraction artifact were present, but did not hinder interpretation. Photic stimulation did not significantly alter the record. Hyperventilation with good effort did not alter the record. Drowsing occurred briefly. Stage II sleep was not recorded. No definite epileptiform discharge was identified. INTERPRETATION: Normal EEG. CORRELATION: The absence of epileptiform discharges on a single EEG does not exclude a clinical diagnosis of seizures. cc: Bernie Rob III, MD
--- NOTE | 2019-04-19 17:36 | DISCHARGE SUMMARY ---
ADMISSION DATE: 04/16/2019 DISCHARGE DATE: 04/19/2019 PRIMARY CARE PROVIDER: RENAE Rausch. REASON FOR ADMISSION: Came in with history of tremor and shaking. HISTORY: This is a 43-year-old, legally blind, male with history of diabetes mellitus type 2, hypertension, congestive heart failure, hyperlipidemia, presented to the emergency department with a 1-day history of shaking all over, mostly in the right lower extremity. This was witnessed by his mother. States that he became incoherent after that and patient was brought to the emergency room. Due to presenting symptoms, suspicion for onset of seizure, he was admitted. PAST MEDICAL HISTORY: Once again, diabetes mellitus type 2, hypertension, congestive heart failure, hyperlipidemia. PAST SURGICAL HISTORY: Eye surgery. HOSPITAL COURSE: So, patient was admitted to the hospital. Lab unremarkable. White count 6,980, hematocrit 37, platelet count 255,000. Chemistries: Blood sugars were running mostly in the 300s. Electrolytes: Creatinine 1.4, sodium 143, potassium 3.8, chloride 105, bicarb 28, BUN 20, creatinine 1.4. Dr. Rob evaluated. He felt the history of right leg jerking was consistent with colonic activity, raising question of a focal motor seizure associated with difficulty in communication and likely dysphagia. MRI was done but did not show any acute findings. EEG was done as well which was normal. [place] we should continue to levetiracetam, at least short-term. So, he would like to go home. DISCHARGE MEDICATIONS: We will discharge him on vitamin D 28961 units p.o. weekly, Apresoline 50 mg t.i.d., Motrin 600 mg q.4 hours p.r.n., Levemir 25 units subcutaneous q.p.m., Trandate 400 mg p.o. t.i.d., levetiracetam 500 mg p.o. twice a day, lisinopril 40 mg a day. Ativan 0.4 mg he was taking just p.r.n., I will not continue that. Robaxin he was getting 750 mg t.i.d. p.r.n. and we will hold that as well. Procardia ER 60 mg b.i.d., Prilosec 40 mg a day, Zocor 40 mg a day, and Desyrel 100 mg at bedtime. cc: Yogesh Ledesma MD
[2019-04-19] MEDS ORDERED: PROCARDIA ER PO SCH (21:00)
[2019-04-21] MEDS ORDERED: VITAMIN D PO SCH (09:00)
== END 2019-04-19 18:22 | disposition home health service (06) | DRG 101 ==
LOC: SUPCPDRO → ED 16:29 → 4N 23:00 → SUATTDRO 23:00
PROVIDERS: ATTEND Emergency Medicine
CPT/HCPCS: 70450; 70553; 71010; 71045; 80048; 80053; 80101; 80301; 80307; 80320; 80324; 80345; 80346; 80353; 80358; 80361; 80365; 82055; 82550; 82607; 82746; 82805; 82948; 83605; 83735; 83992; 84100; 84439; 84443; 84484; 85025; 85610; 85730; 93005; 95816; 97161; 97165; A9270; A9579; G0431; G0434; G0479; G0480; G6040; J1953; J2060; J7030; XXXXX

== ENCOUNTER 2019-06-16 20:42 | Observation (INO) ==
[2019-06-16] MEDS ORDERED: D50W SYRINGE IV ONE (21:25)
[2019-06-16 21:56] LABS: BASO# 0.05 X1000 (0.0-0.2); BASO% 0.9 % (0.0-0.8); EOS# 0.27 X1000 (0.0-0.7); EOS% 4.6 % (0.0-10.0); HEMOGLOBIN 10.8 g/dL (14.0-18.0); LYMPH# 1.62 X1000 (1.2-3.4); LYMPH% 27.6 % (20.5-51.1); MCH 26.5 PG (27-31); MCHC 32.7 g/dL (33-37); MCV 81.1 FL (81-99); MONO# 0.81 X1000 (0.11-0.59); MONO% 13.8 % (1.7-9.3); MPV 9.4 FL (7.4-10.4); NEUT# 3.12 X1000 (1.4-6.5); NEUT% 53.1 % (42.2-75.2); PLT 282 X1000 (130-400); RBC 4.07 XMIL (4.7-6.1); RDW 13.6 % (11.5-14.5); WBC 5.87 X1000 (4.8-10.8)
[2019-06-16 22:22] LABS: CREATININE 1.9 mg/dL (0.7-1.2); POTASSIUM 3.8 mmol/L (3.5-5.1)
[2019-06-16] MEDS ORDERED: D5 1/2 NS 1,000 ML IV ONE (23:05)
--- NOTE | 2019-06-16 23:36 | PROVIDER DOCUMENTATION ---
This chart was entered by Flakita Mcmahon Scribe, acting as scribe for Carlos Umaña MD. HPI-General Adult - General Chief Complaint: Low Blood Sugar Stated Complaint: hypoglycemic Time Seen by Provider: 06/16/19 21:24 Source: patient Allergies/Adverse Reactions: Patient Allergies Allergy/AdvReac Type Severity Reaction Status Date / Time acetaminophen [From Lortab] Allergy NAUSEA Verified 06/16/19 21:22 hydrocodone bitartrate * Allergy NAUSEA Verified 06/16/19 21:22 [From Lortab] Home Medications: Home Medication List Medication Instructions Recorded Confirmed Last Taken Type Nifedipine E.r. [Procardia ER] 60 mg PO BID 02/18/15 06/16/19 02/17/15 08:30 History Insulin Detemir [Levemir Flextouch] 50 units SQ QPM 09/30/15 06/16/19 Unknown History Insulin Regular, Human [Novolin R] See Protocol SQ DIRECTED PRN PRN 09/30/15 06/16/19 Unknown History Labetalol [Trandate] 400 mg PO TID 09/30/15 06/16/19 Unknown History Lisinopril 40 mg PO DAILY 09/30/15 06/16/19 Unknown History Omeprazole [Prilosec] 40 mg PO DAILY 09/30/15 06/16/19 Unknown History Hydralazine [Apresoline] 50 mg PO TID AC 10/06/15 06/16/19 Unknown History Cholecalciferol (Vitamin D3) 1 cap PO DAILY 04/17/19 06/16/19 Unknown History [Vitamin D3] Simvastatin 40 g PO QPM 04/17/19 06/16/19 Unknown History Trazodone [Desyrel] 100 mg PO QHS 04/17/19 06/16/19 Unknown History Levetiracetam [Keppra] 500 mg PO BID 30 Days #60 tab 04/19/19 06/16/19 Unknown Rx Nifedipine E.r. [Procardia ER] 60 mg PO BID tab 04/19/19 06/16/19 Unknown Rx - History of Present Illness -Gen Adult Nature of Presenting Problems: Pt is 43/m presenting to ED via EMS. Pt had his insulin regimen changed recently and just started the new humalog pen today. His blood sugar dropped down to 25 per EMS. Location of Pain/Injury: reports: none Pain Radiation: reports: no radiation Quality of Pain: reports: none Severity: reports: moderate Onset/Duration: reports: just prior to arrival Timing: reports: still present Context/Activities at Onset: reports: none Modifying Factors: improves with: nothing Associated Symptoms: reports: denies symptoms Similar Symptoms Previously?: No Recently seen or treated by another doctor?: No - Diabetes Related Context Context: reports: low blood sugar (25) Review of Systems - Adult - REVIEW OF SYSTEMS - ADULT Constitutional: denies: chills, fever Eyes: reports: no symptoms reported Ears, Nose, Mouth & Throat: reports: no symptoms reported Cardiovascular: reports: no symptoms reported Respiratory: reports: no symptoms reported Gastrointestinal: reports: no symptoms reported. denies: nausea, vomiting Genitourinary: reports: no symptoms reported Musculoskeletal: reports: no symptoms reported Integumentary: reports: no symptoms reported Neurological: reports: no symptoms reported. denies: dizziness/vertigo, headache/migraines Psychiatric: reports: no symptoms reported Endocrine: reports: no symptoms reported Hematologic/Lymphatic: reports: no symptoms reported Allergic/Immunologic: reports: no symptoms reported All Other Systems: Reviewed and Negative Past History - Adult - PAST MEDICAL HISTORY-ADULT Review of Records: reports: Nursing Assessment Review, Medications Reviewed, Social history reviewed & non-contributory. Cardiovascular: reports: CHF, HTN Respiratory: reports: COPD Gastrointestinal: reports: ulcer Musculoskeletal: reports: arthritis Endocrine/Immune: reports: anemia, Diabetes Other Conditions: reports: blindness - PRIOR SURGERIES/PROCEDURES Surgical/Procedure History: reports: other (eye Sx) - IMMUNIZATION STATUS Childhood Immunizations: NUTD Flu Vaccine: NUTD - SOCIAL HISTORY Smoking: denies, non-smoker Substance Use: marijuana Alcohol Use Frequency: occasionally Living Situation: family Physical Exam-General - PHYSICAL EXAM-ADULT Initial Vital Signs Reviewed: Yes - CONSTITUTIONAL General Appearance: appears well, alert, no apparent distress - EYES Eyes: PERRL/EOMI, pink conjunctivae - HEAD, EARS, NOSE, MOUTH & THROAT HENMT: normocephalic/atraumatic, moist mucous membranes, normal ENT inspection - NECK Neck: non-tender, full range of motion, supple, normal inspection - RESPIRATORY Respiratory: lungs clear - CARDIOVASCULAR Cardiovascular: regular rate, rhythm - MUSCULOSKELETAL Extremity: normal range of motion, non-tender, normal gait, normal inspection - SKIN Integumentary: normal color, warm/dry - NEUROLOGIC Neurologic: grossly normal - PSYCHIATRIC Psych/Mental Status: normal mood/affect, normal thought content, normal thought process, oriented x 3 Progress - PLAN OF CARE/RESULTS Progress/Plan/Lab Results: Vital Signs - 8 hr 06/16/19 21:23 Temperature 97.7 F Pulse Rate 72 Respiratory Rate 18 Blood Pressure 151/88 O2 Sat by Pulse Oximetry 99 Laboratory Results - last 24 hr 06/16/19 21:23 POC Glucose 25 L D Orders Category Date Time Status BMP [BASIC METABOLIC PANEL] [CHEM] Stat Lab 06/16/19 21:27 Uncollected Dextrose 50% Syringe [D50w Syringe] Med 06/16/19 21:25 Discontinued 50 ml IV NOW ONE Result Diagrams: 06/16/19 21:47 06/16/19 21:47 Departure - Departure Date of Disposition Decision: 06/16/19 Time of Disposition Decision: 23:35 DIAGNOSIS: Hypoglycemia Disposition: ADMITTED INPATIENT 09 Certified Medical Emergency: Emergent Condition: Stable Referrals and Follow-Ups: Rosalva Hernadez CRNP [Primary Care Provider] - - Critical Care Note This patient required my direct & personal management of CC.: No Attestation - Physician/ ALEX Attestation Patient care was provided by Advanced Practice Provider:: No The physician spent face to face time with patient:: Yes Advanced Practice Provider documentation review:: Supervising physician onsite and consulted in the evaluation and care of this patient. The physician did have a face to face encounter with the patient. This chart was documented by the indicated scribe, (Flakita Mcmahon Scribe) and accurately reflects the services I performed and decisions made by me, Carlos Umaña MD, as attested by the provider's signature.
[2019-06-17] MEDS ORDERED: NS 1,000 ML IV PRN (02:13)
--- NOTE | 2019-06-17 02:14 | HISTORY AND PHYSICAL ---
PRIMARY CARE PROVIDER: CALIXTO Rausch. CHIEF COMPLAINT: Not feeling well, blood glucose low. HISTORY OF PRESENTING ILLNESS: A 43-year-old male with a history of diabetes mellitus type 2, hypertension, CHF, hyperlipidemia, and seizures, who had presented to emergency department complaining of not feeling well. He states that he started a new insulin and then he is not sure if he gave the proper units, but after giving himself the insulin, he started feeling clammy and not well. EMS arrived, his blood glucose was 25. He was given treatment and brought to the emergency department. In the ED, he was evaluated, he still remained somewhat symptomatic, and due to his presenting symptoms placed him for observation for further evaluation and management. At the time of my examination, patient denied any headache, fever, chills, chest pain, shortness of breath, hemoptysis, or weight changes. States that he is feeling a little bit better. PAST MEDICAL HISTORY: Include diabetes mellitus type 2, hypertension, CHF, hyperlipidemia, seizures. PAST SURGICAL HISTORY: Eye surgery. ALLERGIES: Acetaminophen and hydrocodone. CURRENT MEDICATIONS: Include hydralazine 50 mg p.o. t.i.d., Levemir 50 units subcu q.p.m., Novolin as directed, labetalol 400 mg p.o. t.i.d., Keppra 500 mg p.o. b.i.d., lisinopril 40 mg p.o. daily, nifedipine 60 mg p.o. b.i.d., omeprazole 40 mg p.o. daily, simvastatin 40 mg p.o. q.p.m., trazodone 100 mg p.o. daily. SOCIAL HISTORY: No history of smoking, alcohol or illicit drug use. FAMILY HISTORY: No history of coronary disease. REVIEW OF SYSTEMS: Fourteen point review of system as listed in HPI. Other systems negative. PHYSICAL EXAMINATION: GENERAL: Cooperative, friendly male. He is resting comfortably now. VITAL SIGNS: Temperature 97.7 degrees, pulse 72, respiration 18, blood pressure 151/88. HEENT: Atraumatic, normocephalic. Extraocular movements intact. PERRLA. NECK: Supple. CHEST: Clear to auscultation. CARDIOVASCULAR: Regular rate and rhythm. ABDOMEN: Soft. Positive bowel sounds. NEUROLOGIC: He is awake, alert, oriented x3. GENITOURINARY: No bladder distention. SKIN: Warm. LABORATORIES AND STUDIES: WBCs 5.87, hemoglobin 10.8, hematocrit 33.0, platelets 282,000. Sodium 140, potassium 3.8, chloride 102, CO2 of 27, BUN is 25, creatinine is 1.9. Glucose 174. ASSESSMENT: A 42-year-old male with a history of diabetes mellitus type 2, hypertension, congestive heart failure, seizure disorder who started on a new insulin regimen. Apparently, after taking it, he became somewhat clammy and not feeling well. EMS arrived, he was found to have low blood glucose of 25. He still remained symptomatic in the ED, and subsequently we will place him for observation for further evaluation and management. 1. Diabetes mellitus type 2 with hypoglycemic episode. 2. Hypertension. 3. Seizure disorder. 4. Hyperlipidemia. PLAN: 1. We will admit patient to medical floor with telemetry. 2. Continue with hydration with normal saline. 3. We will monitor blood glucose closely. 4. We will monitor blood pressures. Resume antihypertensive agent. 5. We will put patient on seizure precautions. 6. Restart other home medications. 7. Put patient on deep venous thrombosis prophylaxis, sequential compression devises. 8. We will continue to follow and reassess, make further recommendation based on the patient's clinical course. cc: Rudolph Jimenez MD
[2019-06-17] MEDS ORDERED: PRILOSEC PO SCH (07:00)
[2019-06-17] MEDS: APRESOLINE PO SCH ×2 (07:36→13:00)
[2019-06-17] MEDS ORDERED: PROCARDIA ER PO SCH (09:00)
[2019-06-17] MEDS ORDERED: PRINIVIL PO SCH (09:00)
[2019-06-17] MEDS ORDERED: KEPPRA PO SCH (09:00)
[2019-06-17] MEDS: TRANDATE PO SCH ×2 (10:14→13:00)
[2019-06-17 12:03] VITALS: BP 158/95
[2019-06-17 13:20] LABS: CALCIUM 8.8 mg/dL (8.8-10.2); CREATININE 1.7 mg/dL (0.7-1.2); POTASSIUM 4.6 mmol/L (3.5-5.1)
--- NOTE | 2019-06-17 17:58 | DISCHARGE SUMMARY ---
ADMISSION DATE: 06/17/2019 DISCHARGE DATE: 06/17/2019 HOSPITAL COURSE: The patient presented initially with malaise, clamminess, racing heartbeat after giving himself a new insulin regimen. The patient was found to be severely hypoglycemic with initial glucose 25 responded rapidly to glucose administration coming up to 75 and subsequently in the 200s. The patient reports he has been on fairly stable dose of Lantus but recently started short-acting insulin with meals. He was initially put on a sliding scale but after his glucose meter stopped functioning he just started taking 10 units with every meal. Suspect this was too much for him. The patient was monitored to make sure that he did not developed further hypoglycemia without IV glucose. He remained consistently in the 200s and his symptoms were resolved so he was discharged home on slightly lower dose of Lantus which may eventually have to be moved back up and lower dose of his short-acting. Wrote patient's prescription for a new glucose meter and instructed patient on the importance of monitoring his sugars, especially when his insulin is being adjusted. His other chronic issues were stable during this hospitalization. DISCHARGE MEDICATIONS: Trazodone as previously prescribed, hydralazine 50 mg p.o. t.i.d., lisinopril 40 mg p.o. daily, omeprazole 40 mg p.o. daily, nifedipine extended release 60 mg p.o. b.i.d., simvastatin 40 mg p.o. at bedtime, labetalol 400 mg p.o. t.i.d., Keppra 500 mg p.o. b.i.d., on insulin Lantus decreased from 50 units to 40 units daily, NovoLog, decreased from 10 units with meals to 4 units with meals until patient obtains a new glucose meter and can likely resume sliding scale at that point, nifedipine extended release 60 mg p.o. b.i.d. DISCHARGE VITALS: Temperature 98.4 degrees, pulse 81, respirations 20, blood pressure 158/95, O2 saturations 100% on room air . DISCHARGE DIET: Diabetic. FOLLOWUP PLAN: Patient discharging home on slightly decreased doses of his insulin given prescription for new glucose meter. Strongly counseled to check his sugars regularly and follow up with his PCP for further adjustment of his insulin in immediate future. Greater than 30 minutes spent arranging discharge and counseling patient.
[2019-06-17] MEDS ORDERED: DESYREL PO SCH (21:00)
== END 2019-06-17 14:20 | disposition home or self-care (01) ==
LOC: SUPCPDRO → ED 20:42 → INTOOBSV 06-17 01:04 → SUATTDRO 06-17 01:04 → 4N 06-17 01:04
PROVIDERS: ATTEND Internal Medicine
CPT/HCPCS: 80048; 82948; 85025; A9270; XXXXX